=== PATIENT | female | born 1945 | race Caucasian/White ===

== ENCOUNTER 2024-06-29 15:10 | Observation (INO) | payer MEDICARE ==
[~2024-06-29 15:10] MED LIST: Iopamidol-370 76% 500 ML MDV (1 ML CHARGE) ONE
[2024-06-29] MEDS ORDERED: hydrALAZINE 20 MG/ML VIAL ONE ×2 (16:19→19:01)
[2024-06-29 16:31] LABS: #Basophils Less than 0.03 10x3/uL (0.0-0.2); %Basophils 0.1 % (0.0-1.0); %Eosinophils 0.3 % (0.0-10.0); %Lymphocytes 15.3 % (21.0-51.0); Hematocrit 42.1 % (36.0-47.0); Hemoglobin 13.8 g/dL (12.0-16.0); Mean Corpuscular HGB CONC 32.8 g/dL (32.0-36.0); Mean Corpuscular Volume 79.4 fL (78.0-98.0); Mean Platelet Volume 10.9 fL (7.4-10.4); Platelet Count 251 10x3/uL (130-400); RBC Distribution Width 16.4 % (11.5-14.5)
[2024-06-29 16:46] LABS: ALT (SGPT) 16 U/L (8-55); AST (SGOT) 25 U/L (5-34); Albumin 4.3 g/dL (3.4-4.8); Alkaline Phosphatase 128 U/L (40-110); Anion Gap 16 mmol/L (10-20); BUN (Urea Nitrogen) 23 mg/dL (9.8-20.1); Bilirubin, Total 0.4 mg/dL (0.2-1.2); Calc. Creatinine Clearance 0 mL/min (70-130); Carbon Dioxide 23 mmol/L (23-31); Chloride 107 mmol/L (98-107); Estimated GFR 90; Globulin 3.3 g/dL (2.4-3.5); Glucose 111 mg/dL (83-110); Potassium 3.9 mmol/L (3.5-5.1); Protein, Total 7.6 g/dL (5.8-8.1); Sodium 142 mmol/L (136-145)
[2024-06-29 16:50] LABS: Troponin I 0.018 ng/mL (< 0.028)
[2024-06-29 16:57] LABS: INR-International Normal Ratio 0.9; Prothrombin Time 12.5 sec (12.0-14.7)
[2024-06-29 16:58] LABS: PTT 34.2 sec (22.9-36.1)
[2024-06-29] MEDS ORDERED: Acetaminophen 325 MG TAB PO PRN (17:30)
[2024-06-29] MEDS ORDERED: Acetaminophen 650 MG Suppository PR PRN (17:30)
[2024-06-29] MEDS ORDERED: hydrALAZINE 20 MG/ML VIAL SLOW IVP PRN (17:30)
[2024-06-29] MEDS ORDERED: Aspirin Chewable 81 MG TAB ONE (18:05)
[2024-06-29] MEDS ORDERED: ALPRAZolam 0.25 MG TAB PO SCH (20:00)
[2024-06-29 20:08] VITALS: BMI 21.1
[2024-06-29] MEDS: Lisinopril 10 MG TAB PO SCH (20:19)
[2024-06-29] MEDS: Famotidine 20 MG TAB PO SCH (20:19)
[2024-06-29] MEDS: Atorvastatin Calcium 40 MG TAB PO SCH (20:19)
[2024-06-29] MEDS: Melatonin 3 MG TAB PO PRN (20:20)
[2024-06-29] MEDS: hydrOXYzine 25 MG TAB PO SCH (20:20)
[2024-06-29] MEDS: Famotidine/PF 20 mg/2ml Vial SLOW IVP SCH (20:20)
[2024-06-29 20:22] LABS: Cholesterol 194 mg/dl (< 200 Desired); HDL Cholesterol 48 mg/dL (>60 Neg Risk); LDL Cholesterol, Calculated 120 mg/dL; Magnesium 1.9 mg/dL (1.6-2.6); Triglycerides 129 mg/dL (Less than 150)
[2024-06-29] MEDS ORDERED: Labetalol HCl 100 MG/20 ML VIAL SLOW IVP PRN (20:22)
[2024-06-30] MEDS: Aspirin 325 MG TAB PO SCH (08:32)
[2024-06-30] MEDS: Lisinopril 10 MG TAB PO SCH (08:32)
[2024-06-30] MEDS ORDERED: Aspirin 81 mg Enteric Coated Tablet PO SCH (09:00)
[2024-06-30 11:38] VITALS: TEMP 98.7
[2024-06-30 12:41] VITALS: BP 180/78
== END 2024-06-30 15:30 | disposition home or self-care (01) ==
LOC: ERS 15:10 → 2SE 18:00
PROVIDERS: ADMIT Internal Medicine; ATTEND Family Medicine
DX: H34.11 Central retinal artery occlusion, right eye (principal); I16.0 Hypertensive urgency; F41.9 Anxiety disorder, unspecified; Z79.899 Other long term (current) drug therapy
CPT/HCPCS: 70450; 70496; 70498; 70551; 80061; 83036; 83735; 84484; 85610; 85730; 86141; 93005; 96374; 99285; J0360; 80053; 84443; 85025; G0378; Q9967